=== PATIENT | male | born 1945 | race Caucasian/White ===

== ENCOUNTER 2018-01-17 11:57 | Emergency (ER) | payer MEDICARE ==
[~2018-01-17] VITALS: Ht 188 cm; Wt 99.8 kg
[2018-01-17] MEDS ORDERED: Ultram50 MG PO (13:58)
== END 2018-01-17 13:52 | disposition home or self-care (01) ==
LOC: ER 11:57
DX: S70.12XA Contusion of left thigh, initial encounter (principal); W06.XXXA Fall from bed, initial encounter
CPT/HCPCS: 73552; 99283-25